=== PATIENT | female | born 1940 | race Caucasian/White ===

== ENCOUNTER 2020-07-19 09:44 | Emergency (ER) | payer MEDICARE, OTHER | END 2020-07-19 12:55 | disposition home or self-care (01) | LOC: FER 09:44 | DX: S02.2XXA Fracture of nasal bones, initial encounter for closed fracture (principal); S20.219A Contusion of unspecified front wall of thorax, initial encounter; S05.12XA Contusion of eyeball and orbital tissues, left eye, initial encounter; I10 Essential (primary) hypertension; Z88.8 Allergy status to other drugs, medicaments and biological substances; Z79.899 Other long term (current) drug therapy; W19.XXXA Unspecified fall, initial encounter; Y92.009 Unspecified place in unspecified non-institutional (private) residence as the place of occurrence of the external cause | CPT/HCPCS: 70486; 71120 ==

== ENCOUNTER 2022-03-03 12:41 | Emergency (ER) | payer MEDICARE, OTHER ==
[2022-03-03 14:22] LABS: BASOPHIL 0.7 % (0-2); EOSINOPHIL 3.1 % (0-7); HCT 37.1 % (37.0-47.0); HGB 12.9 g/dl (12.5-16.0); LYMPHOCYTE 21.1 % (15-48); MCH 33.5 pg (25.0-31.0); MCHC 34.8 g/dL (32.0-36.0); MCV 96.4 fL (78.0-100.0); MONOCYTE 12.3 % (0-12); MPV 8.6 fL (6.0-9.5); NEUTROPHIL 62.2 % (41-80); NRBC 0; PLT 170 K/uL (150-400); RBC 3.85 M/uL (4.20-5.40); RDW 12.1 % (11.5-14.0); WBC 7.2 K/uL (4.0-10.5)
[2022-03-03 14:42] LABS: CREATININE 0.6 mg/dL (0.51-0.95); POTASSIUM 3.3 mmol/L (3.5-5.1)
[2022-03-03] MEDS ORDERED: MEDROL 4MG DOSEP4 MG PO (15:04)
== END 2022-03-03 15:25 | disposition home or self-care (01) ==
LOC: FER 12:41
PROVIDERS: Nurse Practitioner Family
DX: S20.219A Contusion of unspecified front wall of thorax, initial encounter (principal); I10 Essential (primary) hypertension; Z79.899 Other long term (current) drug therapy; V49.40XA Driver injured in collision with unspecified motor vehicles in traffic accident, initial encounter
CPT/HCPCS: 36415; 70450; 71250; 72125; 80048; 85025